=== PATIENT | female | born 1955 | race Caucasian/White ===

== ENCOUNTER → 2020-03-06 | Outpatient (CLI) | payer BC | LOC: MC.RAD 13:39 | DX: N60.02 Solitary cyst of left breast (principal) ==

== ENCOUNTER 2021-08-22 16:35 | Inpatient (IN) | payer BC ==
[~2021-08-22] VITALS: Ht 157.5 cm; Wt 79.4 kg
[2021-08-22] MEDS ORDERED: TYLENOL 325MG325 MG PO (18:06)
[2021-08-22] MEDS ORDERED: LEXAPRO20 MG PO (18:07)
[2021-08-22] MEDS ORDERED: VENTOLIN0.09 MG INH (18:07)
[2021-08-22] MEDS ORDERED: MUCINEX 60600 MG/TA1 PO (18:08)
[2021-08-22] MEDS ORDERED: FLONASEALLERGY NAS (18:08)
[2021-08-22] MEDS ORDERED: ROBITUSSIN100 MG/5 M PO (18:09)
[2021-08-22] MEDS ORDERED: COZAAR100 MG PO (18:09)
[2021-08-22] MEDS ORDERED: XYZAL5 MG PO (18:09)
[2021-08-22] MEDS ORDERED: SINGULAIR 110 MG/TAB PO (18:10)
[2021-08-22] MEDS ORDERED: PREDNISONE10 MG PO (18:11)
[2021-08-22 20:09] VITALS: BP 123/57; PULSE 99; TEMP 99
--- NOTE | 2021-08-22 20:15 | NUR ---
Patient off of floor, down to surgery.
[2021-08-23] VITALS (14 sets, daily range): BP systolic 88–117; BP diastolic 44–61; PULSE 79–105; TEMP 97.5–98.6
--- NOTE | 2021-08-23 01:20 | NUR ---
Patient up from PACU at 0015. Patient experienced some soft pressures while in the PACU. Patient's pressures were decent upon arrival to floor. Patient began to experience soft pressures shortly after such as /. Called Racheal for guidance. Racheal ordered 500ml NS bolus to be followed by 100ml/hour LR. Will continue to monitor.
--- NOTE | 2021-08-23 02:27 | NUR ---
Patient two hours post op. Performed assessment. Experiencing soft pressures. Patient reports pain is increasing, but falls back to sleep quickly and snoring. Patient has sat on the bedside commode to urinate. Patient stated she was dizzy. Placed patient back in bed with bed alarm and call light near. Will continue to monitor.
[2021-08-23 06:08] LABS: HEMOGLOBIN 12.8 g/dl (12.5-16.0); MEAN CELL VOLUME 91 fl (80.0-100.0); MEAN CORPUSCULAR HEMOGLOBIN 30 pg (27-31); MEAN CORPUSCULAR HGB CONC 33 g/dl (33.0-37.0); MEAN PLATELET VOLUME 10.5 fl (7.4-10.4); PLATELET COUNT 237 K/mm3 (130-400); REDCELL DISTRIBUTION WIDTH-CV 14.1 % (11.5-14.5)
--- NOTE | 2021-08-23 06:22 | NUR ---
Patient has been tolerating clear liquids with no complaints of nausea or vomiting. Blood pressure continues to stay approximately 105/62 after a 500ml bolus of NS. Patient is resting in bed and having intermittent sleep.
[2021-08-23 06:40] LABS: ALBUMIN 2.8 gm/dL (3.4-4.8); BILIRUBIN,TOTAL 0.4 mg/dL (0.2-1.2); CALCIUM 8.5 mg/dL (8.4-10.2); CREATININE, serum 1.01 mg/dL (0.57-1.11); POTASSIUM 4.4 mmol/L (3.5-4.5)
[2021-08-23 07:20] LABS: BAND 6 % (0-10); BASOPHIL 1 % (0-2); LYMPHOCYTE 7 % (20.0-51.0); NEUTROPHILS 84 % (42.0-75.2)
[2021-08-23 07:21] LABS: PLATELET ESTIMATE NORMAL (NORMAL)
--- NOTE | 2021-08-23 11:19 | NUR ---
Initial visit; Patient thanked Wildlife Science Professor for looking in on her and offering God's blessings and keeping her in Wildlife Science Professor's prayers.
--- NOTE | 2021-08-23 14:18 | NUR ---
THROUGHOUT THIS SHIFT PATIENT HAS COMPLAINED OF HIGH LEVELS OF PAIN. PATIENT HAS ALSO BEEN HYPOTENSIVE WITH LOW O2 READINGS WHICH MAKES PAIN CONTROL DIFFICULT. O2 USE HAS INCREASED FROM 2L VIA NC TO 4L OVER THE COURSE OF THIS SHIFT. PATIENT HAS DEVELOPED A COUGH/CONGESTION WHICH SHE HAS SCHEDULED MUCINEX FOR. CONCERNING FOR POSSIBILITY TO DEVELOP PNEUMONIA. I HAVE ENCOURAGED PATIENT TO AMBULATE AND DEEP BREATH/COUGH MORE TO PREVENT THIS COMMON POST OP COMPLICATION. HAS BEEN USING INCENTIVE SPIROMETER EVERY HOUR. PATIENT HAS BEEN USING PERSONAL ALBUTEROL INHALER. AMULATES WELL ON HER OWN, INSTRUCTED TO CALL FOR ASSIST. APPETITE HAS BEEN FAIR. ENCOURAGED PATIENT TO INCREASE WATER INTAKE TOLERABLE. NO S/S OF INFECTION, CURRENTLY ON ANTIBIOTICS. NO SKIN BREAKDOWN. CONTINENT. WILL CONT TO MONITOR.
--- NOTE | 2021-08-23 14:39 | NUR ---
Sw met with pt to complete intake. Pt lives at home with spouse. Pt next of kin is Gill, daughter, . Pt reports independent on all ADLS and does not use any DME. Pt reports no DPOA-HC and is not interested at this time. PCP is Jason and [facility]. DC: Home
--- NOTE | 2021-08-23 16:46 | NUR ---
Care taken over from LEORA Awad. Pt is sitting in bed upon entry, she is A/O x4. Her breathing is even and unlabored on 4L O2 via NC, does become dyspneic with any exertion or pain. Sites to abdomen CDI. Pt reports increased pain with movement. PRN pain medication administered. Pt encouraged to cough and deep breath, reviewed IS with patient. No further needs, call light within reach.
--- NOTE | 2021-08-23 21:00 | NUR ---
Pt. sitting up in bed. Pt. is A&Ox3, assessment complete. INT to rt. wrist patent. Abd. incisions CDI. Pt. reports pain at a 6 on pain scale giving pain meds per orders. Pt. agrees to ambulate in the [place] when pain meds "kick in". Pt. denies further needs, call light within reach.
--- NOTE | 2021-08-23 22:30 | NUR ---
Pt. ambulated in the [place]. Pt. did this without o2. Upon returning to room, checked O2 sat, 86% on room air. O2 at 2L nc placed on pt.
[2021-08-24 00:13] VITALS: BP 104/56; PULSE 88; TEMP 97.7
[2021-08-24 06:28] LABS: BASO % 0.1 % (0.0-2.0); EOS % 0.1 % (0.0-4.0); GRAN # 7.5 K/mm3 (1.4-6.5); GRAN % 80.5 % (42.2-75.2); LYMPH % 10.8 % (20.0-51.0); MEAN CELL VOLUME 95 fl (80.0-100.0); MEAN CORPUSCULAR HGB CONC 31 g/dl (33.0-37.0); MEAN PLATELET VOLUME 10.8 fl (7.4-10.4); MONO # 0.8 K/mm3 (0.1-0.6); MONO % 8.1 % (1.7-9.3); PLATELET COUNT 238 K/mm3 (130-400); RED BLOOD COUNT 3.53 M/mm3 (4.10-5.30); REDCELL DISTRIBUTION WIDTH-CV 14.4 % (11.5-14.5)
[2021-08-24 06:32] LABS: HEMATOCRIT 33.4 % (37.0-47.0); HEMOGLOBIN 10.4 g/dl (12.5-16.0); MEAN CORPUSCULAR HEMOGLOBIN 29 pg (27-31)
[2021-08-24 06:45] LABS: CALCIUM 8.2 mg/dL (8.4-10.2); CREATININE, serum 0.79 mg/dL (0.57-1.11); POTASSIUM 4.2 mmol/L (3.5-4.5)
--- NOTE | 2021-08-24 07:00 | NUR ---
Pt hollering out in room. Went in to see pt, she was trying to get up to use the restroom. Removed SCDs and pt did well getting up and walking independently to the bathroom. Pt reported that the "things are her legs and pulling on her stitches in her stomach". Informed her that the SCDs on her legs are to keep her circulation moving in her legs and should not be affecting the incision in her abd. Pt voided and walked independently back to bed and was able to get in bed with no issues. Pt denies any needs at this time, call light within reach
[2021-08-24 07:39] VITALS: BP 113/56; PULSE 97; TEMP 97.7
--- NOTE | 2021-08-24 08:54 | NUR ---
Pt lungs are very coarse sounding. Pt stated that she did go to her dr about a month ago for an upper respiratory infection. Pt does get short of breath easily and is on O2. Pt taking shallow breaths and appears to be in alot of pain. When pain assessed, she reported that it is only a 1-2/10 at rest, jumps up to 8/10 when she sits up. PRN pain medication as pt is up moving. Assisted pt to the chair for breakfast. Gave her a pillow to splint her stomach as she is coughing quite a bit. Pt reports she has been having this cough for quite a while. No other needs verbalized, call light within reach
--- NOTE | 2021-08-24 10:10 | NUR ---
Pt back in bed upon entering room. Pt states that she is feeling much better. Pt did eat some breakfast, no complaints of N/V. Pt is sleepy and did fall asleep after antibiotic hooked up and while charting. Pt denies any needs, call light within reach
[2021-08-24 11:50] VITALS: BP 119/64; PULSE 96; TEMP 97.5
--- NOTE | 2021-08-24 14:00 | NUR ---
Pt has been sleeping off and on. She did not want anything to eat for lunch, but did order a little later. Pts boyfriend has been in off and on as well. Pt reports that her pain is 2/10. Encouraged pt to get up and walk again.
--- NOTE | 2021-08-24 15:00 | NUR ---
Pt did get up and walk in the halls with stand by assist. Pt did well, pain tolerable. Pt asked to be left alone for a while so that she can nap. No other needs verbalized, call light within reach
[2021-08-24 15:03] VITALS: BP 130/63; PULSE 100; TEMP 98
--- NOTE | 2021-08-24 18:06 | NUR ---
Pt had another loose stool that is dark/black in color. Dr Springer notified, no orders received at this time. Pt refused her tylenol this evening. States that she is doing okay an is rating her pain 2-3/10.
[2021-08-24 19:38] VITALS: BP 129/61; PULSE 115; TEMP 97.7
--- NOTE | 2021-08-24 19:45 | NUR ---
Pt. sitting up in bed. Pt. is A&OX3, assessment complete. INT to rt.hand patent. Pt. is moaning in pain at this time. When asked what her pain is she states "I don't know, Bad?". Educated pt about trying to stay on a schedule with pain medications to help prevent pain getting so severe. Pt. voices understanding. Pain meds given per orders. Pt. denies further needs, call light within reach.
[2021-08-25] VITALS (12 sets, daily range): BP systolic 93–122; BP diastolic 43–57; PULSE 83–105; TEMP 97.5–98.8
[2021-08-25 06:30] LABS: BASO % 0.2 % (0.0-2.0); EOS % 0.1 % (0.0-4.0); GRAN # 6.5 K/mm3 (1.4-6.5); GRAN % 72.9 % (42.2-75.2); LYMPH # 1.8 K/mm3 (1.2-3.4); LYMPH % 19.5 % (20.0-51.0); MEAN CELL VOLUME 92 fl (80.0-100.0); MEAN CORPUSCULAR HGB CONC 32 g/dl (33.0-37.0); MEAN PLATELET VOLUME 10.8 fl (7.4-10.4); MONO # 0.6 K/mm3 (0.1-0.6); MONO % 6.9 % (1.7-9.3); PLATELET COUNT 321 K/mm3 (130-400); RED BLOOD COUNT 2.78 M/mm3 (4.10-5.30); REDCELL DISTRIBUTION WIDTH-CV 14.6 % (11.5-14.5)
[2021-08-25 06:37] LABS: HEMATOCRIT 25.5 % (37.0-47.0); MEAN CORPUSCULAR HEMOGLOBIN 29 pg (27-31)
[2021-08-25 06:39] LABS: HEMOGLOBIN 8.1 g/dl (12.5-16.0)
--- NOTE | 2021-08-25 06:41 | NUR ---
Lab called hgb of 8.[address] chang notified. orders for hemacult.
[2021-08-25 06:44] LABS: CALCIUM 8.5 mg/dL (8.4-10.2); CREATININE, serum 0.86 mg/dL (0.57-1.11); POTASSIUM 4.2 mmol/L (3.5-4.5)
--- NOTE | 2021-08-25 10:35 | NUR ---
Pt is very drowsy and does fall asleep during conversation. She overall reports feeling okay, says doesn't need tylenol. Pt has been getting up frequently to use the bathroom and has been using the call light. Bed alarm on as pt does have increased confusion and is very drowsy.
--- NOTE | 2021-08-25 14:05 | NUR ---
Pt refused tylenol earlier today. Just took pt for a walk which she tried to refuse, but informed her she needed to go for a walk several times a day. Pt did ambulate without difficulty. Tylenol given now. Pt lungs sound very coarse now and does have audible wheezes. Pt does have inhalers at her bedside from home. Pt reports that she does use them once a day, order reads for every 6 hours as needed. Pt does appear short of breath since ambulating, will check O2 sats.
[2021-08-25 15:09] LABS: HEMATOCRIT 20.5 % (37.0-47.0); HEMOGLOBIN 6.6 g/dl (12.5-16.0)
--- NOTE | 2021-08-25 15:15 | NUR ---
Received call from lab regarding pt, H&H, Dr Springer notified and new orders received. Updated pt that dr scales blood, pt was okay with this. Educated her on the plan for the rest of the day
--- NOTE | 2021-08-25 17:30 | NUR ---
Blood recently started at 60ml/hr. Pt tolerating with no signs or symptoms of reaction. Pt does have SO at bedside with her. Pt reporting that she is feeling a little hungry. She has not had much to eat today. Reports pain is tolerable. Will continue to remain with pt
[2021-08-25 22:32] LABS: HEMATOCRIT 24.1 % (37.0-47.0); HEMOGLOBIN 8.1 g/dl (12.5-16.0)
[2021-08-26] VITALS (13 sets, daily range): BP systolic 96–134; BP diastolic 43–75; PULSE 84–105; TEMP 97.4–98.6
--- NOTE | 2021-08-26 00:12 | NUR ---
Report received from Andreea Zelaya RN. Patient is A&Ox3 and pleasant. Full body assessment completed and vital signs are WNL. During shift exchange the patient is receiving an infusion of PRBC due to a hemoglobin of 6.6. Patient has 3 lap sights that are well approximated. Patient is due for a EGD and colonoscopy on 08/26/21 in the afternoon. Patient is having a difficult time consuming the miralax and gatorade regimen that has been ordered. This nurse and PCT's have been encouraging the patient drink. This nurse emphasized to the patient that if the bowel regimen is not completed then the procedure might be delayed. Patient expressed understanding. Patient has no other complaints at this time. Call light within reach.
--- NOTE | 2021-08-26 04:20 | NUR ---
Patient has not been tolerating bowel prep very well. C/O abdominal pain-rating pain 8/10 to all quadrants-dilaudid given per dr order. Also gave zofran so patient may be able to get more bowel prep down. Has approx 240mls left of first dose.
[2021-08-26 06:33] LABS: MEAN CELL VOLUME 89 fl (80.0-100.0); MEAN CORPUSCULAR HGB CONC 32 g/dl (33.0-37.0); MEAN PLATELET VOLUME 10.3 fl (7.4-10.4); PLATELET COUNT 257 K/mm3 (130-400); RED BLOOD COUNT 3.21 M/mm3 (4.10-5.30); REDCELL DISTRIBUTION WIDTH-CV 15.5 % (11.5-14.5)
[2021-08-26 06:38] LABS: HEMATOCRIT 28.5 % (37.0-47.0); HEMOGLOBIN 9.2 g/dl (12.5-16.0); MEAN CORPUSCULAR HEMOGLOBIN 29 pg (27-31)
[2021-08-26 06:43] LABS: BILIRUBIN,TOTAL 0.4 mg/dL (0.2-1.2); CREATININE, serum 0.71 mg/dL (0.57-1.11); TOTAL PROTEIN 5.1 gm/dL (6.2-8.1)
[2021-08-26 07:28] LABS: BAND 4 % (0-10); EOSINOPHIL 5 % (0-4); LYMPHOCYTE 37 % (20.0-51.0); METAMYELOCYTE 2 % (0-0); NEUTROPHILS 49 % (42.0-75.2); PLATELET ESTIMATE NORMAL (NORMAL)
--- NOTE | 2021-08-26 08:06 | NUR ---
AT BEGINNING OF SHIFT IT WAS NOTED THAT PATIENT STILL HAD 800 CC OF PREP TO DRINK. PT EDUCATED SHE HAD UNTIL 8 AM TO DRINK MUCH OF THAT POSSIBLE FOR HER EGD/COLONOSCOPY TODAY. PT STATES THE PREP MAKES HER NAUSEOUS. ZOFRAN ADMINSTERED AND INSTRUCTED PT TO CONTINUE PREP. PIV IN RIGHT WRIST ALSO NOTED TO BE LEAKING AT BEGINNING OF SHIFT, NEW ONE PLACED IN LEFT AC AND ZOFRAN ADMINISTERED.
[2021-08-26 09:50] LABS: HEMATOCRIT 27.7 % (37.0-47.0); HEMOGLOBIN 9.2 g/dl (12.5-16.0)
--- NOTE | 2021-08-26 13:28 | NUR ---
PT RETURNED TO ROOM FOLLOWING EGD AND COLONOSCOPY. VSS. PT REPORTS MODERATE ABD PAIN.
--- NOTE | 2021-08-26 14:57 | NUR ---
Manager Route met with patient to review discharge plan. Patient states she plans to return home at time of discharge. The only concern she has at this time is how much of the hospital bill her insurance will cover. SW provided information about the [employer]an[employer] Assistance program through the hospital.
[2021-08-26 15:45] LABS: HEMATOCRIT 27.5 % (37.0-47.0); HEMOGLOBIN 9.1 g/dl (12.5-16.0)
--- NOTE | 2021-08-26 19:55 | NUR ---
Pt. sitting up in bed. Pt. is A&OX3, assessment complete. INT to lt. ac patent. Pt. reports abd. pain at a 6 on pain scale, giving meds per orders. Pt. denies further needs, call light within reach.
[2021-08-27 00:38] VITALS: BP 115/55; PULSE 87; TEMP 97.6
[2021-08-27 04:26] VITALS: BP 129/62; PULSE 81; TEMP 97.6
[2021-08-27 07:53] VITALS: BP 127/55; PULSE 91; TEMP 98.1
[2021-08-27] MEDS ORDERED: CARAFATE 1GM1 G PO (08:38)
[2021-08-27] MEDS ORDERED: PROTONIX 40MG T40 MG PO (08:38)
[2021-08-27] MEDS ORDERED: ROXICODONE 55 MG/TAB PO (08:39)
[2021-08-27] MEDS ORDERED: LEVAQUIN 5500 MG/TA1 PO (08:39)
--- NOTE | 2021-08-27 09:00 | NUR ---
Pt doing well this morning, hopeful to get to go home today. Pt reports that her pain is tolerable, only wanting Tylenol.
--- NOTE | 2021-08-27 10:30 | NUR ---
Dr Springer in to see pt, orders wrote for discharge. Reviewed discharge instructions with pt. Pt stated that her ride would be here around 1100. INT removed from left AC. Informed pt to notify nursing when she is ready to go so that we can escort her out.
[2021-08-27 11:07] VITALS: BP 129/58; PULSE 99; TEMP 98.3
--- NOTE | 2021-08-27 11:30 | NUR ---
Pt escorted out at this time
== END 2021-08-27 11:30 | disposition home or self-care (01) | DRG 338 ==
LOC: MEDICAL 16:35 → SURG 16:38
PROVIDERS: ADMIT Surgery
PROC: 0DTJ4ZZ Resection of Appendix, Percutaneous Endoscopic Approach (ICD-10-PCS; principal; 2021-08-22 21:00)
PROC: 0DJD8ZZ Inspection of Lower Intestinal Tract, Via Natural or Artificial Opening Endoscopic (ICD-10-PCS; 2021-08-26)
PROC: 0DJ08ZZ Inspection of Upper Intestinal Tract, Via Natural or Artificial Opening Endoscopic (ICD-10-PCS; 2021-08-26 12:30)
DX: K35.32 Acute appendicitis with perforation, localized peritonitis, and gangrene, without abscess (principal); K26.4 Chronic or unspecified duodenal ulcer with hemorrhage; J45.909 Unspecified asthma, uncomplicated; I10 Essential (primary) hypertension; F32.A Depression, unspecified; F17.210 Nicotine dependence, cigarettes, uncomplicated; E66.9 Obesity, unspecified; Z88.0 Allergy status to penicillin; Z88.2 Allergy status to sulfonamides; Z79.52 Long term (current) use of systemic steroids; Z68.32 Body mass index [BMI] 32.0-32.9, adult
CPT/HCPCS: OP; A9284; C9113; G0378; J0330; J0690; J1100; J1170; J1650; J1885; J1956; J2405; J2704; J3010; J3480; J7040; P9016